=== PATIENT | male | born 1940 | race Caucasian/White ===

== ENCOUNTER 2020-08-16 15:53 | Inpatient (IN) | payer MEDICARE, SELFPAY ==
[2020-08-16] VITALS (7 sets, daily range): BP systolic 78–110; BP diastolic 54–68; PULSE 96–136; RESP 16–23; TEMP 36.8–38; O2SAT 92–98; BMI 21.2
--- NOTE | 2020-08-16 16:03 | ECG_ITS ---
[facility] Test Date: 2020-08-16 Pat Name: Boris Hogan Department: Room: Gender: Male Production Support Developer: : 1940 Requested By: Dorian Tineo Order Number: [id number] Yung MD: Rayna Ramos M.D. Measurements Intervals Rudolph Rate: 108 P: [place]: QRS: 53 QRSD: 102 T: -64 QT: 319 QTc: 429 Interpretive Statements ATRIAL FIBRILLATION WITH RAPID VENTRICULAR RESPONSE NONSPECIFIC T-WAVE ABNORMALITY No previous ECG available for comparison Electronically Signed On 08-16-2020 21:19:04 CDT by Rayna Ramos M.D. [id number]
[2020-08-16 16:18] LABS: Basophils % 0.2 %; Hematocrit 34.1 % (42.0-52.0); Hemoglobin 12.2 g/dL (11.7-16.6); Lymphocytes # 0.5 10^3/uL (0.8-4.8); Lymphocytes % 10.8 %; Mean Corpuscular HGB Conc 35.8 g/dL (30.0-36.0); Mean Corpuscular Hemoglobin 33.9 pg (28.0-34.0); Mean Corpuscular Volume 94.7 fL (80-94); Mean Platelet Volume 13.9 fL (7.4-10.4); Monocytes # 0.2 10^3/uL (0.2-0.9); Monocytes % 5.1 %; Neutrophils # 3.62 10^3/uL (1.8-7.7); Neutrophils % 83.2 %; Nucleated Red Blood Cells % 0 %; Platelet Count 49 10^3/cmm (130-400); Red Cell Distribution Width 12.7 % (12.1-15.1); White Blood Count 4.4 10^3/uL (4.0-10.0)
--- NOTE | 2020-08-16 16:27 | ED_ITS ---
HPI - General Adult General: Chief complaint: General Medical Stated complaint: POSSIBLE DEHYDRATION Time Seen by Provider: 08/16/20 15:57 History of Present Illness: HPI narrative: 1-year-old male presents to the emergency room after multiple falls. She had multiple falls for the last week. He states this sometimes occurs when he first stands up at times when he is walking. He states he walks regularly he has large number of dry eschars on his knees arms face top of his head they are all from falls over the last week. He denies any chest pain with him but he has noticed some palpitations. Is a history of atrial fibrillation. At the bedside he is noted to be in A. fib with RVR however his rate is varying from 110-120s. Onset (ago): week(s) Location: head, face, upper extremity and lower extremity Severity: mild Relieving factors: none Exacerbating factors: none Associated symptoms: Deny chest pain, confusion, cough, diaphoresis, decreased appetite, dyspnea, fevers/chills, headache(s), malaise, nausea, rash, palpitations, seizures, short of breath, syncope, vomiting or weakness Review of Systems Const: Denies: malaise or diaphoresis ENMT: Denies: throat pain, ear or mastoid pain, nasal discharge or nasal congestion Card: Denies: chest pain, palpitations or syncope Resp: Denies: dyspnea GI: Denies: nausea or vomiting : Denies: flank pain, dysuria, urinary frequency or urinary urgency Skin/Breast: Denies: rash Neuro: Denies: headache(s) or confusion PFS ED PFSH: Medical History Abnormal transaminases Alcohol abuse Atrial fibrillation Falls No pertinent past medical history Orthostatic hypotension Surgical History No pertinent past surgical history Family History Denies family history of CAD (coronary artery disease) Family history of premature coronary artery disease Social History Smoking and tobacco status: never smoked Alcohol intake: current Alcohol intake frequency: 0-2 Drinks per Day Alcohol type: beer Lives independently: Yes Housing: House Physical Exam Const: COMMON NORMALS: no acute distress GENERAL APPEARANCE: cooperative and comfortable ORIENTATION/CONSCIOUSNESS: Yes awake, Yes oriented to person, Yes oriented to place and Yes oriented to time HENMT: COMMON NORMALS: normocephalic, atraumatic, hearing grossly normal bilaterally and external ears normal HEAD & SCALP: normocephalic and atraumatic EXTERNAL EAR: Yes external ears normal Resp: COMMON NORMALS: normal respiratory effort, No retractions, No use of accessory muscles and clear to auscultation bilaterally AUSCULTATION: clear to auscultation bilaterally Cardio: RATE: tachycardic RHYTHM: abnormal rhythm irregularly irregular GI: COMMON NORMALS: Soft to palpation and No hepatosplenomegaly present AUSCULTATION: Yes normoactive bowel sounds PALPATION: Yes Soft to palpation, No Tenderness to palpation present (GI), No Guarding due to palpation present (GI) and Yes No hepatosplenomegaly present Extremity: COMMON NORMALS: normal to inspection, capillary refill normal, no clubbing, cyanosis or edema, no calf tenderness and no pedal edema Neuro: SENSORIUM/ORIENTATION: Yes oriented to person, Yes oriented to place and Yes oriented to time Skin: COMMON NORMALS: no rashes or lesions noted GENERAL SKIN EXAM: no rashes or lesions noted Course Vital Signs: Vital signs: Vital Signs Temperature 97.4 F L 08/19/20 11:46 Pulse Rate 74 08/19/20 14:00 Respiratory Rate 12 08/19/20 11:46 Blood Pressure 91/72 08/19/20 11:46 Pulse Oximetry 92 08/19/20 11:46 MDM - General Adult 2 MDM Narrative: Medical decision making narrative: Reviewed findings with the patient he does have a lot of alcohol use. Like that may be contributing to hyponatremia discussed Dr. Bunn will admit also need to be evaluated for tickborne illness Lab Data: Labs: Lab Results 08/16/20 08/16/20 08/16/20 Range/Units 14:00 14:00 14:00 WBC 4.4 (4.0-10.0) 10^3/ uL RBC 3.60 L (4.1-5.3) 10^6/u L Hgb 12.2 (11.7-16.6) g/dL Hct 34.1 L (42.0-52.0) % MCV 94.7 H (80-94) fL MCH 33.9 (28.0-34.0) pg MCHC 35.8 (30.0-36.0) g/dL RDW 12.7 (12.1-15.1) % Plt Count 49 L (130-400) 10^3/c mm MPV 13.9 H (7.4-10.4) fL Neut % (Auto) 83.2 % Lymph % (Auto) 10.8 % [place] % (Auto) 5.1 % Eos % (Auto) 0.0 % Baso % (Auto) 0.2 % Neut # (Auto) 3.62 (1.8-7.7) 10^3/u L Lymph # (Auto) 0.5 L (0.8-4.8) 10^3/u L [place] # (Auto) 0.2 (0.2-0.9) 10^3/u L Eos # (Auto) 0.0 (0.0-0.8) 10^3/u L Baso # (Auto) 0.0 (0.0-0.1) 10^3/u L Nucleated RBC % (a uto) 0 % Nucleated RBCs # 0.0 /100WBC Sodium 127 L 131 L (136-145) mmol/L Potassium 4.2 (3.5-5.1) mmol/L Chloride 92 L (98-107) mmol/L Carbon Dioxide 23 (22-29) mmol/L Anion Gap 16.2 (5-19) BUN 29 H (8-23) mg/dL Creatinine 1.2 (0.7-1.2) mg/dL GFR Calculation Not Reportable Glucose 111 (65-115) mg/dL Calculated Osmolal ity 271 L (285-295) mOsm/k g Uric Acid 4.6 (3.4-7.0) mg/dL Calcium 7.7 L (8.5-10.5) mg/dL Total Bilirubin 0.9 (0.15-1.2) mg/dL AST 270 H (0-40) U/L ALT 164 H (0-41) U/L Alkaline Phosphata se 134 H (40-130) IU/L Total Protein 5.7 L (6.6-8.7) g/dL Albumin 3.4 L (3.5-5.2) g/dL Globulin 2.3 (1.3-4.6) g/dL Lipase 30 (13-60) U/L 25-OH Vitamin D To jaqueline (18-72) pg/mL 1,25 Dihydroxy Vit D2 pg/mL 1,25 Dihydroxy Vit D3 pg/mL TSH (0.27-4.20) uIU/ mL PTH Intact (15-65) pg/mL Calcium (PTH Intac t) (8.5-10.5) mg/dL Urine Color (Yellow) Urine Appearance (CLEAR) Urine pH (5-7) Ur Specific Gravit y (1.005-1.030) Urine Protein (Negative) Urine Glucose (UA) (Normal) Urine Ketones (Negative) Urine Blood (Negative) Urine Nitrate (Negative) Urine Bilirubin (Negative) Urine Urobilinogen (Negative) mg/dL Ur Leukocyte Adeola ase (Negative) Urine RBC (0-2) /hpf Urine WBC (0-5) /hpf Ur Squamous Epith Cells (0-5) /hpf Amorphous Sediment /hpf Urine Bacteria (NONE) /hpf Coarse Granular Ca sts /lpf Ethyl Alcohol < 10 (0-10) mg/dL 08/16/20 08/16/20 08/16/20 Range/Units 14:00 14:00 14:00 WBC (4.0-10.0) 10^3/ uL RBC (4.1-5.3) 10^6/u L Hgb (11.7-16.6) g/dL Hct (42.0-52.0) % MCV (80-94) fL MCH (28.0-34.0) pg MCHC (30.0-36.0) g/dL RDW (12.1-15.1) % Plt Count (130-400) 10^3/c mm MPV (7.4-10.4) fL Neut % (Auto) % Lymph % (Auto) % [place] % (Auto) % Eos % (Auto) % Baso % (Auto) % Neut # (Auto) (1.8-7.7) 10^3/u L Lymph # (Auto) (0.8-4.8) 10^3/u L [place] # (Auto) (0.2-0.9) 10^3/u L Eos # (Auto) (0.0-0.8) 10^3/u L Baso # (Auto) (0.0-0.1) 10^3/u L Nucleated RBC % (a uto) % Nucleated RBCs # /100WBC Sodium (136-145) mmol/L Potassium (3.5-5.1) mmol/L Chloride (98-107) mmol/L Carbon Dioxide (22-29) mmol/L Anion Gap (5-19) BUN (8-23) mg/dL Creatinine (0.7-1.2) mg/dL GFR Calculation Glucose (65-115) mg/dL Calculated Osmolal ity (285-295) mOsm/k g Uric Acid (3.4-7.0) mg/dL Calcium (8.5-10.5) mg/dL Total Bilirubin (0.15-1.2) mg/dL AST (0-40) U/L ALT (0-41) U/L Alkaline Phosphata se (40-130) IU/L Total Protein (6.6-8.7) g/dL Albumin (3.5-5.2) g/dL Globulin (1.3-4.6) g/dL Lipase (13-60) U/L 25-OH Vitamin D To jaqueline 70 (18-72) pg/mL 1,25 Dihydroxy Vit D2 <8 pg/mL 1,25 Dihydroxy Vit D3 70 pg/mL TSH 2.25 (0.27-4.20) uIU/ mL PTH Intact 18.6 (15-65) pg/mL Calcium (PTH Intac t) 7.7 L (8.5-10.5) mg/dL Urine Color (Yellow) Urine Appearance (CLEAR) Urine pH (5-7) Ur Specific Gravit y (1.005-1.030) Urine Protein (Negative) Urine Glucose (UA) (Normal) Urine Ketones (Negative) Urine Blood (Negative) Urine Nitrate (Negative) Urine Bilirubin (Negative) Urine Urobilinogen (Negative) mg/dL Ur Leukocyte Adeola ase (Negative) Urine RBC (0-2) /hpf Urine WBC (0-5) /hpf Ur Squamous Epith Cells (0-5) /hpf Amorphous Sediment /hpf Urine Bacteria (NONE) /hpf Coarse Granular Ca sts /lpf Ethyl Alcohol (0-10) mg/dL 08/16/20 Range/Units 17:26 WBC (4.0-10.0) 10^3/ uL RBC (4.1-5.3) 10^6/u L Hgb (11.7-16.6) g/dL Hct (42.0-52.0) % MCV (80-94) fL MCH (28.0-34.0) pg MCHC (30.0-36.0) g/dL RDW (12.1-15.1) % Plt Count (130-400) 10^3/c mm MPV (7.4-10.4) fL Neut % (Auto) % Lymph % (Auto) % [place] % (Auto) % Eos % (Auto) % Baso % (Auto) % Neut # (Auto) (1.8-7.7) 10^3/u L Lymph # (Auto) (0.8-4.8) 10^3/u L [place] # (Auto) (0.2-0.9) 10^3/u L Eos # (Auto) (0.0-0.8) 10^3/u L Baso # (Auto) (0.0-0.1) 10^3/u L Nucleated RBC % (a uto) % Nucleated RBCs # /100WBC Sodium (136-145) mmol/L Potassium (3.5-5.1) mmol/L Chloride (98-107) mmol/L Carbon Dioxide (22-29) mmol/L Anion Gap (5-19) BUN (8-23) mg/dL Creatinine (0.7-1.2) mg/dL GFR Calculation Glucose (65-115) mg/dL Calculated Osmolal ity (285-295) mOsm/k g Uric Acid (3.4-7.0) mg/dL Calcium (8.5-10.5) mg/dL Total Bilirubin (0.15-1.2) mg/dL AST (0-40) U/L ALT (0-41) U/L Alkaline Phosphata se (40-130) IU/L Total Protein (6.6-8.7) g/dL Albumin (3.5-5.2) g/dL Globulin (1.3-4.6) g/dL Lipase (13-60) U/L 25-OH Vitamin D To jaqueline (18-72) pg/mL 1,25 Dihydroxy Vit D2 pg/mL 1,25 Dihydroxy Vit D3 pg/mL TSH (0.27-4.20) uIU/ mL PTH Intact (15-65) pg/mL Calcium (PTH Intac t) (8.5-10.5) mg/dL Urine Color Dark yellow (Yellow) Urine Appearance Hazy A (CLEAR) Urine pH 5 (5-7) Ur Specific Gravit y 1.015 (1.005-1.030) Urine Protein 2+ H (Negative) Urine Glucose (UA) Norm (Normal) Urine Ketones Negative (Negative) Urine Blood 3+ H (Negative) Urine Nitrate Negative (Negative) Urine Bilirubin Neg (Negative) Urine Urobilinogen Norm (Negative) mg/dL Ur Leukocyte Adeola ase Negative (Negative) Urine RBC 0-4 H (0-2) /hpf Urine WBC 0-4 H (0-5) /hpf Ur Squamous Epith Cells None (0-5) /hpf Amorphous Sediment 2+ /hpf Urine Bacteria 1+ H (NONE) /hpf Coarse Granular Ca sts 25-40 H /lpf Ethyl Alcohol (0-10) mg/dL Discharge Plan Discharge Patient Disposition: Admitted As Inpatient Admit Provider: Nicholas Casas Clinical Impression: Hyponatremia, Orthostasis, At high risk for tick borne illness, Chronic alcohol use Condition: Stable Discharge Diet: Regular Discharge Activity: Resume usual activity and Increase activity as tolerated Coding Level of Care Code ED Community Services Manager for Cristobalg Fwd Exam Detailed
[2020-08-16] MEDS: ondansetron 2 mg/ML SDV 2 mL 4 MG IVP (16:38)
[2020-08-16] MEDS: sodium chloride 0.9% 500 ML 999 ML IV (16:39)
[2020-08-16 16:48] LABS: Alanine Aminotransferase 164 U/L (0-41); Albumin Level 3.4 g/dL (3.5-5.2); Alkaline Phosphatase 134 IU/L (40-130); Anion Gap 16.2 (5-19); Aspartate Amino Transferase 270 U/L (0-40); Blood Urea Nitrogen 29 mg/dL (8-23); Calcium 7.7 mg/dL (8.5-10.5); Carbon Dioxide 23 mmol/L (22-29); Chloride 92 mmol/L (98-107); Globulin 2.3 g/dL (1.3-4.6); Glucose 111 mg/dL (65-115); Lipase 30 U/L (13-60); Osmolality Calculated 271 mOsm/kg (285-295); Potassium 4.2 mmol/L (3.5-5.1); Sodium 127 mmol/L (136-145); Total Bilirubin 0.9 mg/dL (0.15-1.2); Total Protein 5.7 g/dL (6.6-8.7)
[2020-08-16 16:51] LABS: Slide Review Slide Review Perform
[2020-08-16 17:59] LABS: Glucose Urine UA Norm (Normal); Ketones Urine Negative (Negative); Protein Urine 2+ (Negative); Specific Gravity, Urine 1.015 (1.005-1.030); Urine Appearance Hazy (CLEAR); Urine Color Dark Yellow (Yellow); pH Urine 5 (5-7)
[2020-08-16 18:00] LABS: Add Urine Culture? No; Add Urine Microscopic? YES; Amorphous Sediment Urine 2+ /hpf; Bacteria Urine 1+ /hpf; Bilirubin Urine Neg (Negative); Blood Urine 3+ (Negative); Coarse Granular Casts Urine 25-40 /lpf; Leukocyte Esterase Urine Negative (Negative); Nitrate Urine Negative (Negative); RBC Urine 0-4 /hpf (0-2); Urobilinogen Urine Norm (Negative); WBC Urine 0-4 /hpf (0-5)
--- NOTE | 2020-08-16 18:06 | CTR_ITS ---
PROCEDURE INFORMATION: Exam: CT Head Without Contrast Exam date and time: 08/16/2020 6:06 PM Age: 80 years old Clinical indication: Dizziness and walking, difficulty; Additional info: Frequent falls, off balance, dizzy TECHNIQUE: Imaging protocol: Computed tomography of the head without contrast. Radiation optimization: All CT scans at this facility use at least one of these dose optimization techniques: automated exposure control; mA and/or kV adjustment per patient size (includes targeted exams where dose is matched to clinical indication); or iterative reconstruction. COMPARISON: No relevant prior studies available. RADIATION DOSE METRICS: Total DLP (mGy-cm): 911.53 FINDINGS: Brain: Mild atrophy and mild white matter chronic microvascular changes are noted. No hemorrhage or evidence of acute infarction is seen. Cerebral ventricles: No ventriculomegaly. Paranasal sinuses: Mild right anterior sinusitis is appreciated. Mastoid air cells: Visualized mastoid air cells are well aerated. Bones/joints: Unremarkable. No acute fracture. Soft tissues: Unremarkable. CT/CT head wo con* [id number] IMPRESSION: No acute intracranial abnormality. Mild sinusitis. Radiation Dose CTDIVOL = (mGy): DLP = 911.53 (mGy-cm)
--- NOTE | 2020-08-16 19:29 | PC.NURSE ---
Attempted to call report floor unable to take at this time do to nurse in COVID room.
--- NOTE | 2020-08-16 19:43 | P.HP_ITS ---
Providers/Chief Complaint Admitting Physician: Nicholas Casas MD Chief Complaint: POSSIBLE DEHYDRATION History of Present Illness Boris Hogan is a 80 year old male who does not carry any significant past medical history presented today after chief complaint of feeling extremely lethargic, fatigued. Patient is stating that he lives alone, he is a diet free, tries to eat healthier, drinks a bottle of beer every other night. Denies previous history of HI, CHF, thyroid abnormality, electrolyte imbalance. Patient is stating that he has a habit of walking 2 miles every day. He was walking on 08/08 when he felt extremely dizzy and fell around the curbside and injured his knees, arms and face. He attributed his fall to lack of balance. For last few years he has been seeing an theatrical variety agent thinking his vision has to do something with his imbalance. He denies history of diabetes, neuropathy. Since his fall he has been feeling extremely weak and lethargic he is denying fever, emesis, diarrhea dysuria. He is endorsing poor p.o. fluid intake. He has removed multiple ticks in last 10 days as well. He decided to come to the hospital because of extreme lethargy and he was not able to ambulate independently at home. Diagnostics in the ER revealed orthostatic hypotension he was tachycardic, tachypneic in the ER he was afebrile however when he was admitted to cardiac stepdown unit low-grade temperature 100.4 was noted he has no leukocytosis, mild lymphopenia CT head unremarkable Initially he received normal saline boluses in the ER and he was started on 100 mL of normal saline which I have stopped Patient clinically looks dehydrated, I have requested Covid antigen and chest x- ray and started him on loading dose of doxycycline CBC shows thrombocytopenia, BMP reveals abnormal transaminases, hypocalcemia, Review of Systems Const: Reports: fever(s), chills, body aches, change in appetite, change in weight, fatigue and malaise Eyes: Reports: eye redness (Glaucoma); Denies: change in vision ENMT: Denies: throat pain Card: Denies: chest pain Resp: Denies: dyspnea GI: Denies: abdominal pain : Denies: flank pain Musc: Denies: neck pain Skin/Breast: Reports: new lesions Neuro: Denies: headache(s) Psych: Denies: anxiety Endo: Denies: polyuria Mark/Lymph: Denies: easy bruising All/Imm: Denies: urticaria Medications/Allergies Allergies Allergy/AdvReac Type Severity Reaction Status Date / Time No Known Allergies Allergy Verified 08/16/20 19:34 PFSH Acute PFSH: Medical History (Updated 08/16/20 @ 22:16 by Celeste Lincoln MD) No pertinent past medical history Surgical History (Updated 08/16/20 @ 22:16 by Celeste Lincoln MD) No pertinent past surgical history Family History (Updated 08/16/20 @ 22:16 by Celeste Lincoln MD) Denies family history of CAD (coronary artery disease) Family history of premature coronary artery disease Social History (Updated 08/16/20 @ 22:17 by Celeste Lincoln MD) Smoking and tobacco status: never smoked Alcohol intake: current Alcohol intake frequency: 0-2 Drinks per Day Alcohol type: beer Substance/Drug Use: never Lives independently: Yes Housing: House Vitals/I&O/Wt Last Vital Signs Temp 98.2 F 08/16/20 15:59 Pulse 102 H 08/16/20 19:31 Resp 16 08/16/20 19:31 BP 108/68 08/16/20 19:31 Pulse Ox 96 08/16/20 19:31 08/16/20 08/16/20 08/16/20 06:59 14:59 22:59 Intake Total 500 / 500 Balance 500 / 500 Weight last 48 hrs Weight 63.503 kg Physical Exam Narrative: EXAM NARRATIVE: Elderly male Very articulate Has multiple lacerations all over his extremities, multiple bruises and lacerations around forehead, nose, scalp no active signs of cellulitis or bleeding S1, S2 sinus tachycardia clinically looks very dehydrated Dry cracked lips with dry mucous membranes sunken eyes Abdomen soft nontender no signs of peritonitis No neurological deficit EOMI, PERRLA Orthostatics positive Appropriate mood and affec No joint swelling EOMI, PERRLA, conjunctival hyperemia right greater than left however no eye pain patient not complaining of active blurry vision Data : 08/16/20 14:00 08/16/20 14:00 A&P Assessment and plan (1) Orthostatic hypotension: Status: Acute (2) Hyponatremia: Status: Acute (3) Sepsis: Status: Acute (4) Dehydration: Status: Acute (5) Abnormal transaminases: Status: Acute Additional A&P Information Hyponatremia This seems to be the case of hypovolemia, hyponatremia with active signs of dehy dration Patient drinks beer total 5 bottles in a week, he endorses to taking salt related however does not drink enough fluid in the daytime, Sodium 127, urinary pH 5, UA shows granular casts, alcohol level requested I would check TSH, serum and urine osmolarity, uric acid and urine sodium level He does not use any medications, his symptoms correlate with hyponatremia, no signs of stroke check B12 level, his recent fall seems secondary to orthostatic hypotension I would keep him on normal saline 30 cc/h he received boluses in the ER and I will stop 100 mL/h normal saline order as well Serum sodium level check Neuro check every 6 hours Sepsis Tick related fever Patient has removed 8-10 ticks in last few days Thrombocytopenia abnormal transaminases Sepsis criteria met with fever, tachypnea, tachycardia we will load him with doxycycline and start p.o. antibiotics Requested Covid antigen and chest x-ray Full code Regular diet DVT prophylaxis contraindicated would use SCDs Attestations Medical Necessity Statement*: Anticipating stay in the hospital cross more than 2 midnights for hyponatremia, orthostatic hypotension and sepsis related to tick fever Time Spent in Patient Care: (>than 50% of time spent in counselling and/or direct pt care on unit) . 30mins Coding Level of Care Code Acute Assembler for Becky Morales Diagnoses Orthostatic hypotension I95.1 Hyponatremia E87.1 Sepsis A41.9 Dehydration E86.0 Abnormal transaminases R74.8
[2020-08-16] MEDS: sodium chloride 0.9% 1,000 ML 30 ML IV (22:15)
--- NOTE | 2020-08-16 22:24 | XRR_ITS ---
PROCEDURE INFORMATION: Exam: XR Chest Exam date and time: 08/16/2020 10:24 PM Age: 80 years old Clinical indication: Fever TECHNIQUE: Imaging protocol: XR of the chest. Views: 1 view. COMPARISON: No relevant prior studies available. FINDINGS: Lungs: There are tiny benign calcified granulomas in the left mid lung. No acute pulmonary infiltrates are seen. A skin fold overlies the right upper chest. Pleural spaces: Unremarkable. No pleural effusion. No pneumothorax. Heart/Mediastinum: Unremarkable. No cardiomegaly. Bones/joints: Unremarkable. XR/XR chest 1V portable [id number] IMPRESSION: No acute cardiopulmonary abnormality.
[2020-08-16 22:34] LABS: Sodium 131 mmol/L (136-145); Uric Acid 4.6 mg/dL (3.4-7.0)
[2020-08-16 22:35] LABS: Alcohol Level < 10 mg/dL (0-10)
[2020-08-16 22:41] LABS: Thyroid Stimulating Hormone 2.25 uIU/mL (0.27-4.20)
[2020-08-16] MEDS: acetaminophen 325 mg Tablet PO (23:12)
[2020-08-16 23:43] LABS: SARS Covid-2 Antigen Negative (Negative)
[2020-08-16 23:51] LABS: Urine Random Sodium 20 mmol/L
[2020-08-17] VITALS (9 sets, daily range): BP systolic 78–107; BP diastolic 49–63; PULSE 80–98; RESP 12–26; TEMP 36.5–38.4; O2SAT 93–98
--- NOTE | 2020-08-17 | CT_ITS ---
WS: [id number] CT ABDOMEN PELVIS TECHNIQUE: Noncontrast CT of the abdomen and pelvis with coronal and sagittal reformatted images. CLINICAL INFORMATION: LIVER DISORDER COMPARISON: None. DLP: 778.[address] scans at [facility] use at least one of these dose optimization techniques: automat ed exposure control; mA and/or kV adjustment per patient size (includes targeted exams where dose is matched to clinical indication); or iterative reconstruction. FINDINGS: Enlarged hepatic lobe measuring 17 CM. Gallbladder is contracted. Small fatty attenuation lesion with in the body of the pancreas consistent with lipoma measuring 10 mm. Splenic granulomas. Small bilater al pleural effusions with compressive atelectasis in the lung bases. Noncalcified nodule right lower lobe measuring 5 mm. Adrenal glands are normal. No hydronephrosis in either kidney. Normal caliber abdominal aorta. Prostate calcification. Mild prostate enlargement measuring 3.9 cm. No evidence of high-grade small o r large bowel obstruction. Mild distention of the transverse colon with a few air-fluid levels. A few prominent inguinal lymph nodes likely reactive. Normal caliber abdominal aorta. Aortic calcification. Tiny fat-containing ventral hernia. Slight anterolisthesis L5 on S1. Chronic sp ondylolysis L5-S1. CT/CT abdomen pelvis wo con [id number] IMPRESSION: 1. Hepatomegaly with enlargement right hepatic lobe. No intrahepatic biliary d uctal dilatation. 2. Gallbladder is contracted. 3. Small bilateral pleural effusions with bibasilar atelectasis. 4. No hydronephrosis in either kidney. No obstructing renal or ureteral calcul i. 5. Distention of the transverse colon with a few air-fluid levels likely due t o adynamic ileus. 6. Calcified slightly enlarged prostate measuring 3.9 cm. 7. No free fluid in the abdomen or pelvis. 8. Grade 1 anterolisthesis L5 on S1 with chronic spondylolysis.
[2020-08-17 02:16] LABS: Sodium 130 mmol/L (136-145)
[2020-08-17 05:16] LABS: Basophils % 0.2 %; Hematocrit 30.7 % (42.0-52.0); Lymphocytes # 0.4 10^3/uL (0.8-4.8); Lymphocytes % 7.8 %; Mean Corpuscular HGB Conc 35.8 g/dL (30.0-36.0); Mean Corpuscular Volume 94.8 fL (80-94); Mean Platelet Volume 13.5 fL (7.4-10.4); Monocytes # 0.2 10^3/uL (0.2-0.9); Monocytes % 3.9 %; Neutrophils # 4.29 10^3/uL (1.8-7.7); Neutrophils % 87.7 %; Nucleated Red Blood Cells % 0 %; Platelet Count 43 10^3/cmm (130-400); Red Blood Count 3.24 10^6/uL (4.1-5.3); Red Cell Distribution Width 12.8 % (12.1-15.1); White Blood Count 4.9 10^3/uL (4.0-10.0)
[2020-08-17 05:31] LABS: Anion Gap 13.9 (5-19); Blood Urea Nitrogen 26 mg/dL (8-23); Calcium 7.2 mg/dL (8.5-10.5); Carbon Dioxide 23 mmol/L (22-29); Chloride 96 mmol/L (98-107); Glucose 103 mg/dL (65-115); Osmolality Calculated 273 mOsm/kg (285-295); Potassium 3.9 mmol/L (3.5-5.1); Sodium 129 mmol/L (136-145)
[2020-08-17 05:36] LABS: Slide Review Slide Review Perform
[2020-08-17] MEDS: doxycycline 100 mg Tablet PO ×2 (09:18→18:17)
--- NOTE | 2020-08-17 09:23 | PC.CHAP ---
Pastoral Care Encounter/Spiritual Assessment Type of Contact [] Declined building services technician visit [] Patient/Family/Request visit [] Outpatient visit [] Follow-up visit [] Physician referral [] Code/Alert [x] Routine visit [] Staff referral [] Actively dying [] Patient sleeping [] Family support [] [] Out of room [] Palliative care [] [x] Receiving care in room [] Pre-surgical visit [] Trauma [] Long length of stay [] ICU visit [] Other: Relational/Emotional Strength [] Patient feels connected with others/family/visitors/staff [] Distress [] Loneliness/isolation [] Abandonment Spirituality of Patient [] Person of Alpa [] Attends Rastafari of their Alpa [] Believes in Prayer [] Reads Bible or Sikh materials [] There are Spiritual issues to be addressed Currency Examiner Interventions [x] Prayer [] Active listening [] Non-anxious presence [] Spiritual/emotional support [] Crisis/trauma care [] Spiritual counseling [] Bereavement support [] Provided bereavement packet [] Provided Bible/devotional materials [] Provided toy/stuffed animal, coloring book to patient or family member [] Provided Communion [] Anointing/[place] [] Salvation [x] Completed spiritual assessment [] Other: Impact on Illness or Injury [] Angry [] Fearful [] Anxious [] Often cries [] Exhaustion [] Unable to work [] Unable to attend pentecostalism [] Unable to walk/stand [] Unable to read [] Unable to drive [] Unable to eat/drink [] Unable to sleep [] Unable to be with family [] Patient intubated [] Other: Summary setting up attempting to eat breakfast... having issues but working at it. Time spent with patient 10 min
--- NOTE | 2020-08-17 09:32 | USCV_ITS ---
Boris Hogan Age: 80 Gender: M : 1940 Exam Date: 08/17/2020 12:52 Ordering Phys: Nicholas Casas MD Technologist: Shama Grullon Exam Location: [facility] [place] Indication: CHF BP: 105 / 63 HR: 84 Rhythm: Sinus Technical Quality: Technically difficult study MEASUREMENTS (Male / Female) Normal Values 2D ECHO LV Diastolic Diameter PLAX 3.5 cm 4.2 - 5.9 / 3.9 - 5.3 cm LV Systolic Diameter PLAX 2.8 cm IVS Diastolic Thickness 1.3 cm 0.6 - 1.0 / 0.6 - 0.9 cm IVS Systolic Thickness 1.7 cm LVPW Diastolic Thickness 1.1 cm 0.6 - 1.0 / 0.6 - 0.9 cm LVPW Systolic Thickness 1.3 cm RV Chamber Size 2.5 cm LVOT Diameter 2.0 cm LV Ejection Fraction 2D Teich 40.7 % LA Diameter 2.4 cm LA Width 3.4 cm LA Height 2.3 cm RA Width 3.0 cm RA Height 3.0 cm Aorta at Sinotubular Diameter 2.3 cm M-MODE LV Diastolic Diameter MM 4.0 cm 4.2 - 5.9 / 3.9 - 5.3 cm LV Systolic Diameter MM 3.2 cm LV Ejection Fraction MM Teich 39.0 % IVS Diastolic Thickness MM 1.3 cm 0.6 - 1.0 / 0.6 - 0.9 cm IVS Systolic Thickness MM 1.2 cm LVPW Diastolic Thickness MM 1.1 cm 0.6 - 1.0 / 0.6 - 0.9 cm LVPW Systolic Thickness MM 1.0 cm Aortic Annulus Diameter 2.7 cm LA Ao Ratio MM 0.8 DOPPLER AV Peak Velocity 122.0 cm/s LVOT Peak Velocity 74.0 cm/s AV Area Cont Eq vti 2.1 cm squared AV Area Cont Eq pk 1.9 cm squared TR Peak Velocity 232.7 cm/s TR Peak Gradient 21.7 mmHg TV Peak E Velocity 42.0 cm/s Right Atrial Pressure 3.0 mmHg Pulmonary Artery Systolic Pressu 24.7 mmHg PV Peak Velocity 84.0 cm/s RV Acceleration Time 0.1 s RV Ejection Time 0.2 s RV AcT/ET 0.3 FINDINGS Left Ventricle Normal left ventricular cavity size. Normal left ventricular systolic function. Left ventricular ejection fraction is estimated at 55 %. Although no diagnostic regional wall motion normality could be identified, this possibility cannot be completely excluded. Abnormal septal motion. Right Ventricle Right ventricle not well visualized. Probably normal right ventricular systolic function. Right ventricular systolic pressure 26 mmHg. Right Atrium Right atrial pressure estimated at 3 mmHg. Left Atrium Left atrium not well visualized. Mitral Valve Mitral valve not well visualized. No mitral valve stenosis. Trace mitral valve regurgitation. Aortic Valve Aortic valve not well visualized. No aortic valve stenosis. No aortic valve regurgitation. Tricuspid Valve Tricuspid valve not well visualized. [id number] tricuspid valve regurgitation. Pulmonic Valve Pulmonic valve not well visualized. Pericardium Trivial to small pericardial effusion along right ventricle free wall. Aorta Normal-sized aortic root. Normal-sized inferior vena cava with normal respiratory variation. CONCLUSIONS 1. This is a technically difficult study. 2. Normal left ventricular cavity size and systolic function. Left ventricular ejection fraction is estimated at 55 %. Although no diagnostic regional wall motion normality could be identified, this possibility cannot be completely excluded. 3. Probably normal right ventricular systolic function. 4. Pulmonary artery pressure estimated at 26 mmHg. 5. [id number]-[id number] tricuspid valve regurgitation. 6. Trivial to small pericardial effusion along right ventricle free wall. 7. No evidence of hemodynamic compromise. Viki Centeno MD (Electronically Signed) Final Date: 17 August 2020 18:24 S
--- NOTE | 2020-08-17 09:37 | P.PN_ITS ---
Subjective Subjective: Interval history: Admitted overnight. H&P and labs noted. Examination patient lying comfortably in bed. States he has been having recurrent falls for last few months and that is why he has been having multiple scabs on his body. Does not follow-up with a primary care provider. State had an episode of numbness and weakness in his left arm many years ago but never followed up with anybody. States he consumes wine and beer. Has cut down on wine and now does not drink beer any more as much as he used to. He refuses to quantify the amount. Denies any fever, dysuria, headache, dizziness. States he is aware of irregular heartbeat but does not take any medicines for that. Vitals/I&O/Wt Last Vital Signs Temp 97.8 F 08/17/20 07:39 Pulse 92 08/17/20 07:39 Resp 12 08/17/20 07:39 BP 105/63 08/17/20 07:39 Pulse Ox 95 08/17/20 07:39 08/16/20 08/17/20 08/17/20 22:59 06:59 14:59 Intake Total 500 / 500 642 / 1142 Output Total 300 / 300 100 / 400 Balance 200 / 200 542 / 742 Weight last 48 hrs Weight 63.503 kg Physical Exam Narrative: EXAM NARRATIVE: Elderly male Very articulate Has multiple healed lacerations/scabs all over his extremities, multiple bruises and lacerations around forehead, nose, scalp no active signs of cellulitis or bleeding S1-S2 irregularly irregular, tachycardia, soft pansystolic murmur at apex Abdomen soft nontender no signs of peritonitis No neurological deficit EOMI, PERRLA Appropriate mood and affec No joint swelling EOMI, PERRLA, conjunctival hyperemia right greater than left however no eye pain patient not complaining of active blurry vision Data : 08/17/20 04:32 08/17/20 04:32 A&P Assessment and plan (1) Falls: Status: Acute (2) Orthostatic hypotension: Status: Acute (3) Atrial fibrillation: Status: Acute (4) Hyponatremia: Status: Acute (5) Sepsis: Status: Acute (6) Dehydration: Status: Acute (7) Abnormal transaminases: Status: Acute (8) Alcohol abuse: Status: Acute Additional A&P Information Falls: Could be multifactorial. Cannot rule out secondary to hyponatremia versus arrhythmia from atrial fibrillation, orthostatic hypotension from dehydration versus possible Wernicke's from chronic alcohol abuse. Hyponatremia: Do not have baseline. On admission sodium 127. Up to 131 and down to 129 today morning. Urine sodium 20. Most likely hypovolemic hyponatremia. Give bolus 500 NS followed by NS at 50 cc/h. Repeat sodium levels by 2 PM. Check vitamin B12, folate level, urine drug screen. Check MR brain to rule out Wernicke's encephalopathy. Start patient on thiamine, folate oral. Orthostatic hypotension: Most likely from dehydration. Medical reconciliation done. IV hydration as above. Atrial fibrillation: Mostly rate controlled with occasional episodes of rapid ventricular response overnight. Currently rate controlled. Start patient on metoprolol 12.5 mg twice daily. Not a good candidate of for anticoagulation given recurrent falls. Patient is agreeable for not starting any anticoagulation. He wants to continue taking his home dose of baby aspirin. Check echocardiogram. Sepsis: On admission met through fever, tachycardia, tachypnea. Currently seems to have resolved. Continue with oral doxycycline. Check tick panel. Check MRSA swab, procalcitonin, blood culture, urine Legionella antigen, bacterial antigen. Thrombocytopenia:: Most likely from chronic alcohol abuse. Alcohol abuse: Thiamine and folate as above. Check MRI as above. [facility] protocol. Transaminitis: Most likely from chronic alcohol abuse. Check abdomen pelvis to rule out liver pathology versus any infectious source. Check hepatitis, HIV. CODE STATUS: Discussed with patient in detail. He states he does not want any kind of chest compressions or to be attached to life prolonging machines. He does not want to be attached to a ventilator. Also states if needed his DPOA would be his son and his friend. SCDs for DVT prophylaxis given thrombocytopenia. Regular diet PT/OT evaluation. Attestations Medical Necessity Statement*: Patient requires further hospitalization for management of hyponatremia, orthostatic hypotension, atrial fibrillation with rapid ventricular response, recurrent falls while safe discharge planning is sought. Time Spent in Patient Care: Greater than 35 minutes (>than 50% of time spent in counselling and/or direct pt care on unit) . Coding Level of Care Code Acute Three Dimensional Art Instructor for [facility] Diagnoses Falls W19.XXXA Orthostatic hypotension I95.1 Atrial fibrillation I48.91 Hyponatremia E87.1 Sepsis A41.9 Dehydration E86.0 Abnormal transaminases R74.8 Alcohol abuse F10.10
[2020-08-17 10:12] LABS: Amphetamines Screen Urine Negative (Negative); Barbiturates Screen Urine Negative (Negative); Benzodiazepines Screen Urine Negative (Negative); Cocaine Screen Urine Negative (Negative); Opiate Screen Urine Negative (Negative); PCP Screen Urine Negative (Negative); THC Screen Urine Negative (Negative)
[2020-08-17 10:15] LABS: Estmated Average Glucose 108; Hemoglobin A1C 5.4 % (4.0-6.0)
[2020-08-17 10:21] LABS: Calcium 7.7 mg/dL (8.5-10.5)
[2020-08-17 10:29] LABS: Parathyroid Hormone 18.6 pg/mL (15-65)
[2020-08-17 10:32] LABS: 25 Hydroxy Vitamin D 39 ng/mL (30-100); NT Pro B Type Natriuretic Pept 2777 pg/mL (0-450); Procalcitonin 4.45 ng/mL (0-0.5)
[2020-08-17 10:44] LABS: Alanine Aminotransferase 139 U/L (0-41); Albumin Level 2.8 g/dL (3.5-5.2); Alkaline Phosphatase 101 IU/L (40-130); Aspartate Amino Transferase 235 U/L (0-40); Cholesterol 74 mg/dL (0-200); Globulin 1.9 g/dL (1.3-4.6); HDL Cholesterol 10 mg/dL (60-100); Iron 16 ug/dL (59-158); LDL Cholesterol Calculated 32 mg/dL (50-129); Percent Saturation 11.4 % (20-50); Total Bilirubin 0.6 mg/dL (0.15-1.2); Total Iron Binding Capacity 140 mcg/dl; Total Protein 4.7 g/dL (6.6-8.7); Triglycerides 161 mg/dL (0-150); Unsaturated Iron Binding 124 ug/dL (112-347); VLDL Cholestrol Calculation 32 mg/dL (0-30)
[2020-08-17] MEDS: azithromycin 250 mg Tablet 500 MG PO (11:20)
[2020-08-17] MEDS: sodium chloride 0.9% 500 ML 999 ML IV (11:21)
[2020-08-17] MEDS: bacitracin ointment 28 gm TOPICAL ×2 (11:21→21:17)
[2020-08-17 14:25] LABS: Sodium 128 mmol/L (136-145)
[2020-08-17 14:41] LABS: Influenza A by IFA Negative (Negative); Influenza B by IFA Negative (Negative)
[2020-08-17 16:19] LABS: Folate Level 17.8 ng/mL (4.5-32.2)
[2020-08-17 18:02] LABS: Vitamin B12 > 2000 pg/mL (232-1245)
[2020-08-17] MEDS: ferrous gluconate 324 mg Tablet PO (18:17)
[2020-08-17] MEDS: sodium chloride 1 gm Tablet PO (18:17)
[2020-08-17 19:14] LABS: HIV 1 & 2 Antibody Non-Reactive (Non-Reactiv); HIV 1 & 2 Antigen Non-Reactive (Non-Reactiv)
[2020-08-17] MEDS: sodium chloride 0.9% 1,000 ML 50 ML IV (21:17)
[2020-08-17] MEDS: metoprolol tartrate 25 mg Tablet 12.5 MG PO (22:15)
[2020-08-17 23:34] LABS: Hepatitis A Antibody IgM Non-Reactive (Nonreactive); Hepatitis B Core AB, Total Non-Reactive (Nonreactive); Hepatitis B Surface Antigen Non-Reactive (Nonreactive); Hepatitis C Virus Antibody Non-Reactive (Nonreactive)
[2020-08-18] VITALS (14 sets, daily range): BP systolic 80–115; BP diastolic 60–79; PULSE 76–102; RESP 10–22; TEMP 36.6–36.8; O2SAT 75–96
[2020-08-18 05:39] LABS: Basophils % 0.4 %; Hematocrit 31.6 % (42.0-52.0); Hemoglobin 11.3 g/dL (11.7-16.6); Lymphocytes # 1.5 10^3/uL (0.8-4.8); Lymphocytes % 33.9 %; Mean Corpuscular HGB Conc 35.8 g/dL (30.0-36.0); Mean Corpuscular Hemoglobin 33.8 pg (28.0-34.0); Mean Corpuscular Volume 94.6 fL (80-94); Mean Platelet Volume 13.7 fL (7.4-10.4); Monocytes # 0.2 10^3/uL (0.2-0.9); Monocytes % 5.3 %; Neutrophils # 2.69 10^3/uL (1.8-7.7); Neutrophils % 59.7 %; Nucleated Red Blood Cells % 0 %; Platelet Count 61 10^3/cmm (130-400); Red Blood Count 3.34 10^6/uL (4.1-5.3); Red Cell Distribution Width 13.3 % (12.1-15.1); White Blood Count 4.5 10^3/uL (4.0-10.0)
[2020-08-18 05:53] LABS: Alanine Aminotransferase 158 U/L (0-41); Alkaline Phosphatase 122 IU/L (40-130); Aspartate Amino Transferase 233 U/L (0-40); Blood Urea Nitrogen 24 mg/dL (8-23); Calcium 7.5 mg/dL (8.5-10.5); Carbon Dioxide 24 mmol/L (22-29); Chloride 100 mmol/L (98-107); Creatinine Clr Calc Pharmacy 53.5221; Globulin 2.4 g/dL (1.3-4.6); Glucose 92 mg/dL (65-115); Osmolality Calculated 278 mOsm/kg (285-295); Sodium 132 mmol/L (136-145); Total Bilirubin 0.7 mg/dL (0.15-1.2); Total Protein 5.4 g/dL (6.6-8.7)
[2020-08-18 05:59] LABS: Slide Review Slide Review Perform
[2020-08-18] MEDS: thiamine 100 mg Tablet PO (09:47)
[2020-08-18] MEDS: metoprolol tartrate 25 mg Tablet 12.5 MG PO ×2 (09:47→21:31)
[2020-08-18] MEDS: ferrous gluconate 324 mg Tablet PO ×2 (09:47→18:41)
[2020-08-18] MEDS: doxycycline 100 mg Tablet PO ×2 (09:48→18:41)
[2020-08-18] MEDS: midodrine 5 mg TABLET 2.5 MG PO ×3 (09:48→21:30)
[2020-08-18] MEDS: sodium chloride 1 gm Tablet PO ×2 (09:48→18:41)
[2020-08-18] MEDS: bacitracin ointment 28 gm TOPICAL ×3 (09:51→21:30)
--- NOTE | 2020-08-18 10:08 | PC.NURSE ---
to mri via stretcher at this time
--- NOTE | 2020-08-18 10:15 | MR_ITS ---
WS: [id number] MRI HEAD WITHOUT CONTRAST TECHNIQUE: Sagittal T1, T2 axial, T2 axial FLAIR, axial and coronal T1 images, axial susceptibility w eighted imaging, axial diffusion weighted images, and coronal T2 images were obtained. CLINICAL INFORMATION: possible wernicke COMPARISON: CT August 16, 2020 FINDINGS: No evidence of restricted diffusion to suggest acute ischemia. Ventricular system and basal cisterns are patent. Minimal small vessel changes. Moderate parenchymal volume loss. Normal posterior fossa. N ormal vascular flow voids at the skull base. No extra axial fluid collections. No evidence of mass or mass effect. Mild mucosal thickening in the paranasal sinuses. Mastoid air cells well aerated. No hemosiderin on s usceptibly weighted images. Normal optic chiasm and pituitary infundibulum. Mild symmetric atrophy te mporal lobes and hippocampal formations. Normal cavernous sinuses and Meckel's cave. Normal periaqueductal french. Normal tectal plate. Normal signal in the thalami. Mammillary bodies with in normal limits. No MRI findings of Wernickes encephalopathy. MR/MR head wo con* [id number] IMPRESSION: 1. No evidence of restricted diffusion to suggest acute ischemia. 2. Minimal small vessel changes. Moderate parenchymal volume loss. 3. Mild symmetric atrophy temporal lobes and hippocampal formations. 4. Paranasal sinuses and mastoid air cells are well aerated. 5. No MRI findings of Wernickes encephalopathy.
--- NOTE | 2020-08-18 10:44 | P.PN_ITS ---
Subjective Subjective: Interval history: No events overnight. Patient worked well with physical therapy. Denies any nausea vomiting, headache. On examination today working with physical therapy again. Yesterday evening patient's orthostatic positive. Though patient did not have dizziness. Vitals/I&O/Wt Last Vital Signs Temp 98.1 F 08/18/20 04:00 Pulse 82 08/18/20 09:40 Resp 16 08/18/20 04:00 BP 113/60 08/18/20 09:40 Pulse Ox 95 08/18/20 04:00 08/17/20 08/18/20 08/18/20 22:59 06:59 14:59 Intake Total 1391 / 1751 Output Total 800 / 1175 300 / 1475 Balance 591 / 576 -300 / 276 Weight last 48 hrs Weight 63.503 kg Physical Exam Narrative: EXAM NARRATIVE: Elderly male Very articulate Has multiple healed lacerations/scabs all over his extremities, multiple bruises and lacerations around forehead, nose, scalp no active signs of cellulitis or bleeding S1-S2 irregularly irregular, tachycardia, soft pansystolic murmur at apex Abdomen soft nontender no signs of peritonitis No neurological deficit EOMI, PERRLA Appropriate mood and affec No joint swelling EOMI, PERRLA, conjunctival hyperemia right greater than left however no eye pain patient not complaining of active blurry vision Data : 08/18/20 04:41 08/18/20 04:41 Micro: Microbiology 08/18/20 04:44 Blood Culture - Preliminary Blood SPECIMEN COLLECTED 08/18/20 04:41 Blood Culture - Preliminary Blood SPECIMEN COLLECTED 08/16/20 23:00 Bacterial Antigens - Final Urine Kidney 08/16/20 23:00 Legionella Urinary Antigen - Final Urethra A&P Assessment and plan (1) Falls: Status: Acute (2) Orthostatic hypotension: Status: Acute (3) Atrial fibrillation: Status: Acute (4) Hyponatremia: Status: Acute (5) Sepsis: Status: Acute (6) Dehydration: Status: Acute (7) Abnormal transaminases: Status: Acute (8) Alcohol abuse: Status: Acute Additional A&P Information Falls: Could be multifactorial. Cannot rule out secondary to hyponatremia versus arrhythmia from atrial fibrillation, orthostatic hypotension from dehydration versus possible Wernicke's from chronic alcohol abuse. Hyponatremia: Do not have baseline. On admission sodium 127. Sodium levels up to 132 today. Urine sodium 20. Continue normal saline at 75 cc/h. Oral salt 1 g tablets twice daily. Repeat sodium level at 3 PM. We will decide about IV fluids as per sodium levels. Vitamin B12, folate levels, urine drug screen within normal limits. MRI negative for Wernicke's encephalopathy. Continue with oral thiamine and folate. Orthostatic hypotension: Most likely secondary to autonomic dysfunction because of chronic alcohol abuse. Continue with IV hydration as above for now. Start patient on midodrine 2.5 mg 3 times a day. Atrial fibrillation: Continue with metoprolol 12.5 mg twice daily. Heart rate better controlled. Not a good candidate of for anticoagulation given recurrent falls. Patient is agreeable for not starting any anticoagulation. He wants to continue taking his home dose of baby aspirin. Echocardiogram results consistent with EF 55%, RVSP of 26 Sepsis: Resolved. On admission met through fever, tachycardia, tachypnea. Currently seems to have resolved. Continue with oral doxycycline to finish a 7- day course. Check tick panel. Urine Legionella, bacterial antigen, MRSA swab negative. Blood culture preliminary have remained negative. Procalcitonin elevated most likely secondary to transaminitis. Patient has remained afebrile. Thrombocytopenia:: Most likely from chronic alcohol abuse. Alcohol abuse: Thiamine and folate as above. Patient does not have any active signs of alcohol withdrawal 72 hours post admission. Stop CIWA protocol. Transaminitis: Most likely from chronic alcohol abuse. Abdomen pelvis negative for liver pathology or other than right hepatic lobe enlargement. Hepatic panel, HIV negative. CODE STATUS: Discussed with patient in detail. He states he does not want any kind of chest compressions or to be attached to life prolonging machines. He does not want to be attached to a ventilator. Also states if needed his DPOA would be his son and his friend. SCDs for DVT prophylaxis given thrombocytopenia. Regular diet PT/OT evaluation. Attestations Medical Necessity Statement*: Requires further hospitalization for orthostatic hypotension, hyponatremia resulting in falls, atrial fibrillation while safe discharge planning is sought. Time Spent in Patient Care: Greater than 35 minutes (>than 50% of time spent in counselling and/or direct pt care on unit) . Coding Level of Care Code Acute Sql Report Developer for [facility] Diagnoses Falls [id number].XXXA Orthostatic hypotension I95.1 Atrial fibrillation I48.91 Hyponatremia E87.1 Sepsis A41.9 Dehydration E86.0 Abnormal transaminases R74.8 Alcohol abuse F10.10
[2020-08-18 12:15] LABS: Glucose Point of Care 126 mg/dL (70-110)
[2020-08-18 16:25] LABS: Sodium 131 mmol/L (136-145)
[2020-08-18 17:03] LABS: Glucose Point of Care 148 mg/dL (70-110)
--- NOTE | 2020-08-18 20:45 | PC.NURSE ---
return from mri at 1115.tolerated well.
[2020-08-18] MEDS: sodium chloride 0.9% 1,000 ML 100 ML IV (21:29)
[2020-08-19] VITALS (7 sets, daily range): BP systolic 91–134; BP diastolic 63–91; PULSE 68–108; RESP 12–22; TEMP 36.3–36.8; O2SAT 92–100
[2020-08-19 06:11] LABS: Alanine Aminotransferase 137 U/L (0-41); Albumin Level 2.7 g/dL (3.5-5.2); Alkaline Phosphatase 114 IU/L (40-130); Anion Gap 10.4 (5-19); Aspartate Amino Transferase 167 U/L (0-40); Blood Urea Nitrogen 22 mg/dL (8-23); Calcium 7.6 mg/dL (8.5-10.5); Carbon Dioxide 25 mmol/L (22-29); Chloride 102 mmol/L (98-107); Globulin 2.2 g/dL (1.3-4.6); Glucose 89 mg/dL (65-115); Osmolality Calculated 279 mOsm/kg (285-295); Potassium 4.4 mmol/L (3.5-5.1); Sodium 133 mmol/L (136-145); Total Bilirubin 0.6 mg/dL (0.15-1.2); Total Protein 4.9 g/dL (6.6-8.7)
[2020-08-19 08:28] LABS: Osmolality Urine 585 mOsm/kg (50-1200)
[2020-08-19 08:28] LABS: Osmolality Serum 273 mOsm/kg (278-305)
[2020-08-19] MEDS: sodium chloride 1 gm Tablet PO (08:43)
[2020-08-19] MEDS: thiamine 100 mg Tablet PO (08:44)
[2020-08-19] MEDS: metoprolol tartrate 25 mg Tablet 12.5 MG PO (08:44)
[2020-08-19] MEDS: ferrous gluconate 324 mg Tablet PO (08:44)
[2020-08-19] MEDS: midodrine 5 mg TABLET 2.5 MG PO (08:44)
[2020-08-19] MEDS: doxycycline 100 mg Tablet PO (08:44)
[2020-08-19] MEDS: sodium chloride 0.9% 1,000 ML 100 ML IV (08:45)
--- NOTE | 2020-08-19 09:24 | PC.SOCIAL ---
IMM updated IMM updated Pg. 2 updated with patient. Patient verbalized an understanding. Copy provided. Initialled, dated, timed, and place in chart.
--- NOTE | 2020-08-19 10:33 | PM.DCS ---
Discharge Providers Date of Admission: 08/16/20 18:43 Date of Discharge: August 19, 2020 Attending Provider at Admission: Nicholas Casas MD Attending Provider at Discharge: Nicholas Casas MD Diagnoses at Discharge Discharge Diagnosis (1) Falls: Status: Acute (2) Orthostatic hypotension: Status: Acute (3) Atrial fibrillation: Status: Acute (4) Hyponatremia: Status: Acute (5) Sepsis: Status: Acute (6) Dehydration: Status: Acute (7) Abnormal transaminases: Status: Acute (8) Alcohol abuse: Status: Acute Reason for Visit Reason for Visit: POSSIBLE DEHYDRATION Hospital Course Hospital Course Boris Hogan is a 80 year old male who does not carry any significant past medical history presented today after chief complaint of feeling extremely lethargic, fatigued. Patient is stating that he lives alone, he is a diet free, tries to eat healthier, drinks a bottle of beer every other night. Denies previous history of [place], CHF, thyroid abnormality, electrolyte imbalance. Patient is stating that he has a habit of walking 2 miles every day. He was walking on 08/08 when he felt extremely dizzy and fell around the curbside and injured his knees, arms and face. He attributed his fall to lack of balance. For last few years he has been seeing an hollow handle bench worker thinking his vision has to do something with his imbalance. He denies history of diabetes, neuropathy. Since his fall he has been feeling extremely weak and lethargic he is denying fever, emesis, diarrhea dysuria. He is endorsing poor p.o. fluid intake. He has removed multiple ticks in last 10 days as well. He decided to come to the hospital because of extreme lethargy and he was not able to ambulate independently at home. Patient admitted the hospital for management of her recurrent falls. It is believed patient's recurrent falls are because of orthostatic hypotension, hyponatremia, A. fib with rapid ventricular response. It is believed patient's multiple symptoms are stemming from dehydration and chronic alcohol abuse. There is a concern for sepsis from tick fever which was ruled out. He was treated with IV fluids, salt tablets after which his sodium levels improved. Wernicke's encephalopathy was ruled out with MRI brain. Patient did well with physical therapy. His hospitalization was unremarkable. He was started on low-dose rate controlling medications to which he responded well. He is been discharged hemodynamically stable condition to SNF for further rehabitation as per recommendation from occupational therapy. Physical Exam Narrative: EXAM NARRATIVE: Elderly male Very articulate Has multiple healed lacerations/scabs all over his extremities, multiple bruises and lacerations around forehead, nose, scalp no active signs of cellulitis or bleeding S1-S2 irregularly irregular, tachycardia, soft pansystolic murmur at apex Abdomen soft nontender no signs of peritonitis No neurological deficit EOMI, PERRLA Appropriate mood and affec No joint swelling EOMI, PERRLA, conjunctival hyperemia right greater than left however no eye pain patient not complaining of active blurry vision Discharge Data Data Completed and Pending: Completed Studies During Hospitalization Category Date Time Status CT abdomen pelvis wo con 47770 Rout ine Cat Scan 08/17/[address] head wo con* 7 0450 Stat Cat Scan 08/16/20 18:06 Completed XR chest 1V radha ble [id number] Stat Exams 08/16/20 22:24 Completed MR head wo con* 7 0551 Routine MRI 08/18/20 10:15 Completed CV echo complete* [id number] Routine Ultrasound 08/17/20 09:32 Completed Pending at discharge Category Date Time Status Blood Culture AM LABS Lab 08/18/20 04:44 Results Tick Panel Routin e Lab 08/18/20 15:20 Received Vitamin D 1,25 Di hydroxy Routine Lab 08/17/20 09:32 Received MR head wo con* 7 0551 Routine MRI 08/18/20 10:15 Unverified Labs from last 24 hours 08/19/20 08/18/20 08/18/20 05:15 16:40 15:20 Sodium 133 L Potassium 4.4 Chloride 102 Carbon Dioxide 25 Anion Gap 10.4 BUN 22 Creatinine 0.8 GFR Calculation Not Reportable Glucose 89 POC Glucose 148 H Serum Osmolality Calculated Osmolal ity 279 L Calcium 7.6 L Total Bilirubin 0.6 AST 167 H ALT 137 H Alkaline Phosphata se 114 Total Protein 4.9 L Albumin 2.7 L Globulin 2.2 Urine Osmolality Lyme Ab (Western B lot) Pending E. chaffeensis IgG Ab Pending E. chaffeensis IgM Ab Pending E. chaffeensis Int erp Pending E. chaffeensis Com ment Pending Rickettsia IgG Ab Pending Rickettsia IgM Ab Pending 08/18/20 08/18/2008/17/21 15:20 12:07 04:32 Sodium 131 L Potassium Chloride Carbon Dioxide Anion Gap BUN Creatinine GFR Calculation Glucose POC Glucose 126 H Serum Osmolality 273 L Calculated Osmolal ity Calcium Total Bilirubin AST ALT Alkaline Phosphata se Total Protein Albumin Globulin Urine Osmolality Lyme Ab (Western B lot) E. chaffeensis IgG Ab E. chaffeensis IgM Ab E. chaffeensis Int erp E. chaffeensis Com ment Rickettsia IgG Ab Rickettsia IgM Ab 08/16/20 23:00 Sodium Potassium Chloride Carbon Dioxide Anion Gap BUN Creatinine GFR Calculation Glucose POC Glucose Serum Osmolality Calculated Osmolal ity Calcium Total Bilirubin AST ALT Alkaline Phosphata se Total Protein Albumin Globulin Urine Osmolality 585 Lyme Ab (Western B lot) E. chaffeensis IgG Ab E. chaffeensis IgM Ab E. chaffeensis Int erp E. chaffeensis Com ment Rickettsia IgG Ab Rickettsia IgM Ab Addt'l Data from Hospital Stay: Laboratory Results WBC 4.5 10^3/uL (4.0- 10.0) 08/18/20 04:41 RBC 3.34 10^6/uL (4.1 -5.3) L 08/18/20 04:41 Hgb 11.3 g/dL (11.7-1 6.6) L 08/18/20 04:41 Hct 31.6 % (42.0-52.0 ) L 08/18/20 04:41 MCV 94.6 fL (80-94) H 08/18/20 04:41 MCH 33.8 pg (28.0-34. 0) 08/18/20 04:41 MCHC 35.8 g/dL (30.0-3 6.0) 08/18/20 04:41 RDW 13.3 % (12.1-15.1 ) 08/18/20 04:41 Plt Count 61 10^3/cmm (130- 400) L 08/18/20 04:41 MPV 13.7 fL (7.4-10.4 ) H 08/18/20 04:41 Neut % (Auto) 59.7 % 08/18/20 04:41 Lymph % (Auto) 33.9 % 08/18/20 04:41 [place] % (Auto) 5.3 % 08/18/20 04:41 Eos % (Auto) 0.0 % 08/18/20 04:41 Baso % (Auto) 0.4 % 08/18/20 04:41 Neut # (Auto) 2.69 10^3/uL (1.8 -7.7) 08/18/20 04:41 Lymph # (Auto) 1.5 10^3/uL (0.8- 4.8) 08/18/20 04:41 [place] # (Auto) 0.2 10^3/uL (0.2- 0.9) 08/18/20 04:41 Eos # (Auto) 0.0 10^3/uL (0.0- 0.8) 08/18/20 04:41 Baso # (Auto) 0.0 10^3/uL (0.0- 0.1) 08/18/20 04:41 Nucleated RBC % (a uto) 0 % 08/18/20 04:41 Nucleated RBCs # 0.0 /100WBC 08/18/20 04:41 Sodium 133 mmol/L (136-1 45) L 08/19/20 05:15 Potassium 4.4 mmol/L (3.5-5 .1) 08/19/20 05:15 Chloride 102 mmol/L (98-10 7) 08/19/20 05:15 Carbon Dioxide 25 mmol/L (22-29) 08/19/20 05:15 Anion Gap 10.4 (5-19) 08/19/20 05:15 BUN 22 mg/dL (8-23) 08/19/20 05:15 Creatinine 0.8 mg/dL (0.7-1. 2) 08/19/20 05:15 GFR Calculation Not Reportable 08/19/20 05:15 Glucose 89 mg/dL (65-115) 08/19/20 05:15 POC Glucose 148 mg/dL (70-110 ) H 08/18/20 16:40 Estimat Average Gl ucose 108 08/17/20 04:32 Hemoglobin A1c 5.4 % (4.0-6.0) 08/17/20 04:32 Serum Osmolality 273 mOsm/kg (278- 305) L 08/17/20 04:32 Calculated Osmolal ity 279 mOsm/kg (285- 295) L 08/19/20 05:15 Uric Acid 4.6 mg/dL (3.4-7. 0) 08/16/20 14:00 Calcium 7.6 mg/dL (8.5-10 .5) L 08/19/20 05:15 Iron 16 ug/dL (59-158) L 08/17/20 01:39 TIBC 140 mcg/dl 08/17/20 01:39 % Saturation 11.4 % (20-50) L 08/17/20 01:39 Unsat Iron Binding 124 ug/dL (112-34 7) 08/17/20 01:39 Total Bilirubin 0.6 mg/dL (0.15-1 .2) 08/19/20 05:15 Direct Bilirubin 0.30 mg/dL (0.00- 0.30) 08/17/20 01:39 AST 167 U/L (0-40) H 08/19/20 05:15 ALT 137 U/L (0-41) H 08/19/20 05:15 Alkaline Phosphata se 114 IU/L (40-130) 08/19/20 05:15 NT-Pro-B Natriuret Pep 2777 pg/mL (0-450 ) H 08/17/20 01:39 Total Protein 4.9 g/dL (6.6-8.7 ) L 08/19/20 05:15 Albumin 2.7 g/dL (3.5-5.2 ) L 08/19/20 05:15 Globulin 2.2 g/dL (1.3-4.6 ) 08/19/20 05:15 Triglycerides 161 mg/dL (0-150) H 08/17/20 01:39 Cholesterol 74 mg/dL (0-200) 08/17/20 01:39 LDL Cholesterol, C alc 32 mg/dL (50-129) L 08/17/20 01:39 Total VLDL Cholest sharad 32 mg/dL (0-30) H 08/17/20 01:39 HDL Cholesterol 10 mg/dL (60-100) L 08/17/20 01:39 Cholesterol/HDL Ra abhi 7.40 mg/dL (1.0-5 .00) H 08/17/20 01:39 Lipase 30 U/L (13-60) 08/16/20 14:00 Vitamin B12 > 2000 pg/mL (232 -1245) H 08/17/20 14:40 25-OH Vitamin D To jaqueline 39 ng/mL (30-100) 08/17/20 01:39 Folate 17.8 ng/mL (4.5-3 2.2) 08/17/20 14:40 Procalcitonin 4.45 ng/mL (0-0.5 ) H 08/17/20 01:39 TSH 2.25 uIU/mL (0.27 -4.20) 08/16/20 14:00 PTH Intact 18.6 pg/mL (15-65 ) 08/16/20 14:00 Calcium (PTH Intac t) 7.7 mg/dL (8.5-10 .5) L 08/16/20 14:00 Urine Color Dark yellow (Yel low) 08/16/20 17:26 Urine Appearance Hazy (CLEAR) A 08/16/20 17:26 Urine pH 5 (5-7) 08/16/20 17:26 Ur Specific Gravit y 1.015 (1.005-1.0 30) 08/16/20 17:26 Urine Protein 2+ (Negative) H 08/16/20 17:26 Urine Glucose (UA) Norm (Normal) 08/16/20 17:26 Urine Ketones Negative (Negati ve) 08/16/20 17:26 Urine Blood 3+ (Negative) H 08/16/20 17:26 Urine Nitrate Negative (Negati ve) 08/16/20 17:26 Urine Bilirubin Neg (Negative) 08/16/20 17:26 Urine Urobilinogen Norm mg/dL (Negat tamar) 08/16/20 17:26 Ur Leukocyte Adeola ase Negative (Negati ve) 08/16/20 17:26 Urine RBC 0-4 /hpf (0-2) H 08/16/20 17:26 Urine WBC 0-4 /hpf (0-5) H 08/16/20 17:26 Ur Squamous Epith Cells None /hpf (0-5) 08/16/20 17:26 Amorphous Sediment 2+ /hpf 08/16/20 17:26 Urine Bacteria 1+ /hpf (NONE) H 08/16/20 17:26 Coarse Granular Ca sts 25-40 /lpf H 08/16/20 17:26 Urine Osmolality 585 mOsm/kg (50-1 200) 08/16/20 23:00 Ur Random Sodium 20 mmol/L 08/16/20 23:00 Urine Opiates Scre en Negative ng/mL (N egative) 08/16/20 23:00 Ur Barbiturates Sc reen Negative ng/mL (N egative) 08/16/20 23:00 Ur Phencyclidine S crn Negative ng/mL (N egative) 08/16/20 23:00 Ur Amphetamines Sc reen Negative ng/mL (N egative) 08/16/20 23:00 U Benzodiazepines Scrn Negative ng/mL (N egative) 08/16/20 23:00 Urine Cocaine Scre en Negative ng/mL (N egative) 08/16/20 23:00 U Marijuana (THC) Screen Negative ng/mL (N egative) 08/16/20 23:00 Ethyl Alcohol < 10 mg/dL (0-10) 08/16/20 14:00 Hepatitis A IgM Ab Non-reactive (No nreactive) 08/17/20 14:40 Hep Bs Antigen Non-reactive (No nreactive) 08/17/20 14:40 Hep Bs Antibody 7.0 (11.5-1000) L 08/17/20 14:40 Hep B Core Total A b Non-reactive (No nreactive) 08/17/20 14:40 Hepatitis C Antibo dy Non-reactive (No nreactive) 08/17/20 14:40 HIV 1&2 Ab & HIV 1 Ag Non-reactive (No n-Reactiv) 08/17/20 14:40 HIV 1&2 Antibody Non-reactive (No n-Reactiv) 08/17/20 14:40 Influenza Type A A g Negative (Negati ve) 08/17/20 13:45 Influenza Type B A g Negative (Negati ve) 08/17/20 13:45 SARS-CoV-2 Ag (Rap id) Negative (Negati ve) 08/16/20 23:[address] 08/16/20 18:06 IMPRESSION: No acute intracranial abnormality. Mild sinusitis. Radiation Dose CTDIVOL = (mGy): DLP = 911.53 (mGy-cm) Chest X-Ray 08/16/20 22:24 IMPRESSION: No acute cardiopulmonary abnormality. Abdomen/Pelvis CT 08/17/20 00:00 IMPRESSION: 1. Hepatomegaly with enlargement right hepatic lobe. No intrahepatic biliary ductal dilatation. 2. Gallbladder is contracted. 3. Small bilateral pleural effusions with bibasilar atelectasis. 4. No hydronephrosis in either kidney. No obstructing renal or ureteral calculi. 5. Distention of the transverse colon with a few air-fluid levels likely due to adynamic ileus. 6. Calcified slightly enlarged prostate measuring 3.9 cm. 7. No free fluid in the abdomen or pelvis. 8. Grade 1 anterolisthesis L5 on S1 with chronic spondylolysis. Head MRI 08/18/20 10:15 IMPRESSION: 1. No evidence of restricted diffusion to suggest acute ischemia. 2. Minimal small vessel changes. Moderate parenchymal volume loss. 3. Mild symmetric atrophy temporal lobes and hippocampal formations. 4. Paranasal sinuses and mastoid air cells are well aerated. 5. No MRI findings of Wernickes encephalopathy. Vitals: Last Vital Signs Temp 97.8 F 08/19/20 08:00 Pulse 101 H 08/19/20 08:00 Resp 14 08/19/20 08:00 BP 129/91 08/19/20 08:00 Pulse Ox 94 08/19/20 08:00 Discharge Plan Discharge Patient Disposition: Xfer SNF Condition: Stable Prescriptions: New sodium chloride 1 gram Tablet 1 g PO DAILY 30 Days Qty: 30 RF: 0 midodrine 5 mg Tablet 2.5 mg PO TID 30 Days Qty: 45 RF: 0 doxycycline monohydrate 100 mg Tablet 100 mg PO BID 5 Days Qty: 10 RF: 0 ferrous gluconate 324 mg (37.5 mg iron) Tablet 324 mg PO BIDWM 30 Days Qty: 30 RF: 0 Thera 400 mcg tablet 1 tab PO DAILY Qty: 30 RF: 0 metoprolol tartrate 25 mg Tablet 25 mg PO BID@0900,2100 Qty: 30 RF: 0 No Action No Known Home Medications RF: 0 Discharge Orders: Discharge Order (Routine); Ordered 08/19/20 Ordered By: Nicholas Casas Discharge Diet: Regular Discharge Activity: Resume usual activity and Increase activity as tolerated Patient Instructions: Opioid Safety Activity Restrictions/Additional Instructions: Repeat BMP in 1 week. Discharge Attestations Time Spent in Discharge Care*: greater than 30 min Specific Discharge Activities: educating patient, discussing with pcp/other providers, discussing with bilingual patient support caseworker/social workers/dc planners, documenting/other paperwork and evaluating patient/reviewing data Status at Discharge: Cognitive status at discharge: cognitively intact, Behavioral status at discharge: cooperative, Functional status at discharge: independent ambulation Overall status at discharge: patient is back to baseline Quality Metrics Clinical Quality Measures During this hospital stay, did patient experience: None Coding Level of Care Code Acute g FW DC note Diagnoses Falls W19.XXXA Orthostatic hypotension I95.1 Atrial fibrillation I48.91 Hyponatremia E87.1 Sepsis A41.9 Dehydration E86.0 Abnormal transaminases R74.8 Alcohol abuse F10.10
[2020-08-19 12:26] LABS: Lyme AB Screen <0.90 index
--- NOTE | 2020-08-19 12:39 | PC.NURSE ---
After a 20 minute telephone hold, I gave report to Gabrielle at [facility] at 12:10
[2020-08-22 12:53] LABS: Vit D 1,25 (Oh)2, Total 70 pg/mL (18-72); Vit D2 1,25 (Oh)2 <8 pg/mL; Vit D3 1,25 (Oh)2 70 pg/mL
[2020-08-26 09:21] LABS: RMSF IGG DETECTED; RMSF IGM NOT DETECTED
[2020-08-26 09:22] LABS: E. Chaffeensis AB IGM <1:20; Interpretation PAST INFECTION
== END 2020-08-19 15:10 | disposition skilled nursing facility (03) | DRG 312 ==
LOC: ER 16:41 → CSU 19:07
PROVIDERS: Internal Medicine; Admitting Provider Student in an Organized Health Care Education/Training Program; Emergency Provider Family Medicine; Visit Provider Student in an Organized Health Care Education/Training Program
DX: I95.1 Orthostatic hypotension (principal); A77.0 Spotted fever due to Rickettsia rickettsii; D69.59 Other secondary thrombocytopenia; I25.2 Old myocardial infarction; R29.6 Repeated falls; E83.51 Hypocalcemia; F10.10 Alcohol abuse, uncomplicated; E86.0 Dehydration; I48.91 Unspecified atrial fibrillation
CPT/HCPCS: 36415; 36416; 70450; 70551; 71045; 74176; 80048; 80053; 80061; 80076; 80306; 80307; 81001; 82306; 82310; 82607; 82652; 82746; 82962; 83036; 83540; 83550; 83690; 83880; 83930; 83935; 83970; 84145; 84295; 84300; 84443; 84550; 85025; 86403; 86618; 86666; 86705; 86706; 86709; 86757; 86803; 87040; 87340; 87426; 87449; 87641; 87804; 87806; 93005; 93306; 96361; 96374; 97110; 97116; 97161; 97166; 97530; 99285; J2405; J3490; J7030; J7040; J7050; Q0144

== ENCOUNTER → 2020-09-08 10:33 | Outpatient (BNVA) | payer MEDICARE, SELFPAY | PROVIDERS: Family Provider Emergency Medicine; PCP Family Medicine; Visit Provider Family Medicine | DX: R74.8 Abnormal levels of other serum enzymes (principal); I48.0 Paroxysmal atrial fibrillation; E87.1 Hypo-osmolality and hyponatremia; I95.1 Orthostatic hypotension | CPT/HCPCS: 80053; 86803 ==

== ENCOUNTER → 2021-06-30 10:09 | Outpatient (BNVA) | payer MEDICARE, SELFPAY | PROVIDERS: Family Provider Emergency Medicine; PCP Family Medicine; Visit Provider Family Medicine | DX: E87.1 Hypo-osmolality and hyponatremia (principal); G45.9 Transient cerebral ischemic attack, unspecified; I48.91 Unspecified atrial fibrillation; Z13.220 Encounter for screening for lipoid disorders; Z13.6 Encounter for screening for cardiovascular disorders; I48.0 Paroxysmal atrial fibrillation; L21.9 Seborrheic dermatitis, unspecified | CPT/HCPCS: 80053; 80061; 85025 ==